=== PATIENT | male | born 1955 | race Caucasian/White ===

== ENCOUNTER 2019-01-13 11:55 | Emergency (ER) | payer OTHER ==
[2019-01-13] MEDS ORDERED: Mag&Al/Simet/Diphen/Lido 237 ML KIT MM STA (13:13)
--- NOTE | 2019-01-13 13:17 | C.PDOC ---
History Of Present Illness 63 y/o M c no PMHx p/w sore throat since this morning. Also reports headache, chills, and cough. Denies dyspnea, vomitng, chest pain, abdominal pain, recent travel. Took no medications at home. Time Seen by Provider: 01/13/19 12:37 Chief Complaint (Nursing): Flu-like Symptoms Past Medical History Vital Signs: Last Vital Signs Temp 100.7 F H 01/13/19 12:23 Pulse 99 H 01/13/19 12:23 Resp 18 01/13/19 12:23 BP 115/78 01/13/19 12:23 Pulse Ox 96 01/13/19 12:23 - Medical History PMH: Kidney Stones Family History: States: No Known Family Hx - Social History Hx Alcohol Use: No Hx Substance Use: No - Immunization History Hx Tetanus Toxoid Vaccination: No Hx Influenza Vaccination: No Hx Pneumococcal Vaccination: No Review Of Systems Except As Marked, All Systems Reviewed And Found Negative. Cardiovascular: Negative for: Chest Pain Respiratory: Negative for: Shortness of Breath Physical Exam - Physical Exam Additional Physical Exam Comments: gen nad head nc/at eyes perrl ent tonsillar erythema and exudates, no drooling, no kissing tonsils, no uvular deviation, no abscess seen. neck no rigidity chest not tender cv reg rate lungs no accessory muscle use abd soft, nt back no cva tenderness skin no rash neuro alert extremites not tender ED Course And Treatment O2 Sat by Pulse Oximetry: 96 Medical Decision Making Medical Decision Making: Physical exam reveals tonsillitis, will treat with antibiotics and supportive care. F/u PMD, return to ED for worsening pain, fever, vomiting, drooling, or any other problem. Disposition - Disposition Referrals: [facility] [Outside] Disposition: HOME/ ROUTINE Disposition Time: 13:22 Condition: FAIR Prescriptions: Acetaminophen [Tylenol 325mg tab] 2 tab PO Q4H #30 tab Amoxicillin 875 mg PO BID #20 tablet Ibuprofen [Motrin] 1 tab PO Q6 #30 tab Instructions: Sore Throat, Adult (DC) Forms: [employer] (Uzbek) - Clinical Impression Clinical Impression: Tonsillitis
[2019-01-13 14:04] VITALS: BP 118/82; PULSE 92; RESP 20; TEMP 99; O2SAT 98
== END 2019-01-13 14:23 | disposition home or self-care (01) ==
LOC: C.ER 11:55
DX: J03.90 Acute tonsillitis, unspecified (principal)
CPT/HCPCS: 96372; 99284; J1885

== ENCOUNTER 2019-01-14 12:16 | Emergency (ER) | payer OTHER ==
[2019-01-14 12:41] VITALS: BMI 26.6
[2019-01-14] MEDS ORDERED: Sodium Chloride 0.9% 1,000 ML IV ONE (14:22)
--- NOTE | 2019-01-14 14:28 | C.PDOC ---
History Of Present Illness Patient is a 63yo [place] M with PMH of kidney stones here today for worsening fatigue and increasing fever. He was discharged from this ED yesterday with a diagnosis of tonsillitis and did not start the prescribed antibiotics yet. He did not take OTC antipyretics because of his vomiting. He states he was unable to keep anything down after PO intake. He feels nauseous upon swallowing and throws up within 30 minutes. He is able to keep liquids down, as he is drinking plenty of water and urinating multiple times a day. Last BM was earlier today. He complains of overall fatigue and dizziness. Denies LOC or fall, however is lightheaded when changing positions. Denies chest pain, shortness of breath, abdominal pain, chills, numbness, tingling. <Katheryn Tsai - Last Filed: 01/14/19 14:24> History Per: Patient Current Symptoms Are (Timing): Worse Location Of Pain: Throat Associated Symptoms: Fever, Sore Throat, Nausea, Vomiting. denies: Chills, Cough, Sputum, Diarrhea <Katheryn Tsai - Last Filed: 01/14/19 14:24> <Moreno Morales DO - Last Filed: 01/15/19 00:14> Chief Complaint (Nursing): GI Problem Past Medical History Reviewed: Historical Data, Nursing Documentation, Vital Signs Vital Signs: Last Vital Signs Temp 102.9 F H 01/14/19 12:40 Pulse 98 H 01/14/19 12:40 Resp 18 01/14/19 12:40 BP 126/80 01/14/19 12:40 Pulse Ox 96 01/14/19 12:40 Primary Care Provider: Clinic,Med Surg - Medical History PMH: Kidney Stones, Chronic Kidney Disease Family History: States: Unknown Family Hx - Social History Hx Tobacco Use: Yes (smoked today) Hx Alcohol Use: No Hx Substance Use: No - Immunization History Hx Tetanus Toxoid Vaccination: No Hx Influenza Vaccination: No Hx Pneumococcal Vaccination: No <Katheryn Tsai - Last Filed: 01/14/19 14:24> Vital Signs: Last Vital Signs Temp 99 F 01/14/19 16:15 Pulse 82 01/14/19 16:15 Resp 18 01/14/19 16:15 BP 121/75 01/14/19 16:15 Pulse Ox 96 01/14/19 16:41 <Andrew Moreno SMITH - Last Filed: 01/15/19 00:14> Review Of Systems Constitutional: Positive for: Fever, Weakness. Negative for: Chills, Sweats ENT: Positive for: Throat Pain, Throat Swelling. Negative for: Nose Congestion Cardiovascular: Positive for: Light Headedness. Negative for: Chest Pain, Palpitations, Edema Respiratory: Negative for: Cough, Shortness of Breath, Sputum Gastrointestinal: Positive for: Nausea, Vomiting. Negative for: Abdominal Pain, Diarrhea, Constipation, Melena, Hematochezia Genitourinary: Negative for: Dysuria, Frequency, Incontinence Neurological: Positive for: Weakness, Headache, Dizziness. Negative for: Change in Speech, Confusion, Altered Mental Status <Katheryn Tsai - Last Filed: 01/14/19 14:24> Physical Exam - Physical Exam Appears: No Acute Distress Skin: No Normal Color (flushed), Warm (feverish), Dry Head: Atraumatic, Normacephalic Eye(s): bilateral: PERRL, EOMI Ear(s): Bilateral: TM Erythema Nose: Normal Oral Mucosa: Dry Tongue: Other (white tongue, halitosis) Throat: Erythema, No Drooling, Other (no abscess, no kissing tonsils, able to swallow without pain or difficulty) Neck: Trachea Midline, Other (cervical lymphadenopathy L>R) Cardiovascular: Rhythm Regular, Edema, No Murmur Respiratory: No Accessory Muscle Use, No Rales, No Rhonchi, Wheezing (diffuse expiratory wheeze) Gastrointestinal/Abdominal: Normal Exam, Bowel Sounds, Soft, No Tenderness, No Distention, No Guarding, No Rebound Back: No CVA Tenderness Extremity: No Tenderness, No Pedal Edema, No Calf Tenderness, Capillary Refill (~3 seconds) Pulses: Left Radial: Normal, Right Radial: Normal, Left Dorsalis Pedis: Decreased, Right Dorsalis Pedis: Decreased DTR: Bicep (R): 2+, Bicep (L): 2+, Knee (R): 2+, Knee (L): 2+ Neurological/Psych: Oriented x3, Normal Speech, Normal Cognition, Normal Cranial Nerves <Katheryn Tsai - Last Filed: 01/14/19 14:24> ED Course And Treatment O2 Sat by Pulse Oximetry: 96 <Katheryn Tsai - Last Filed: 01/14/19 14:24> - Laboratory Results Result Diagrams: 01/14/19 14:38 01/14/19 14:38 Lab Results: Total Bilirubin 0.5 mg/dL (0.2-1.3) 01/14/19 14:38 AST 22 U/L (17-59) 01/14/19 14:38 ALT 10 U/L (21-72) L D 01/14/19 14:38 Alkaline Phosphatase 64 U/L (38-126) 01/14/19 14:38 Total Protein 7.3 g/dL (6.3-8.3) 01/14/19 14:38 Albumin 4.5 g/dL (3.5-5.0) 01/14/19 14:38 Globulin 2.8 gm/dL (2.2-3.9) 01/14/19 14:38 Albumin/Globulin Ratio 1.6 (1.0-2.1) 01/14/19 14:38 <Moreno Morales DO - Last Filed: 01/15/19 00:14> Medical Decision Making Medical Decision Making: - labs - CXR - Tylenol 650mg PO - Zofran 4mg IVP - NS 1L - 1543 re-eval. Patient is feeling a lot better. He was told he is able to take Tylenol for fever if he feels warm. Patient states that he sees Dr. Charles in the clinic. <Katheryn Tsai - Last Filed: 01/14/19 14:24> Disposition - Disposition Disposition Time: 15:46 <Katheryn Tsai - Last Filed: 01/14/19 14:24> <Moreno Morales DO - Last Filed: 01/15/19 00:14> - Disposition Referrals: [facility], [Non-Staff] - Disposition: HOME/ ROUTINE Condition: GOOD Additional Instructions: PRINCE GILLIAM, thank you for letting us take care of you today. The emergency medical care you received today was directed at your acute symptoms. If you were prescribed any medication, please fill it and take as directed. It may take several days for your symptoms to resolve. Return to the Emergency Department if your symptoms worsen, do not improve, or if you have any other problems. Please contact your doctor or call one of the physicians/clinics you have been referred to that are listed on the Patient Visit Information form that is included in your discharge packet. Bring any paperwork you were given at disch arge with you along with any medications you are taking to your follow up visit. Our treatment cannot replace ongoing medical care by a primary care provider outside of the emergency department. Thank you for allowing the [facility] team to be part of your care today. Take the antibiotics that were already prescribed to you. Follow up with your primary care doctor this week for re-evaluation and further management. 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 JOSELUIS has examined the patient and agrees with the treatment plan. <Moreno Morales DO - Last Filed: 01/15/19 00:14>
[2019-01-14 14:43] LABS: BASO # 0.1 K/uL (0.0-0.2); BASO % 0.5 % (0.0-2.0); HEMOGLOBIN 14.8 g/dL (12.0-18.0); LYMPH # 1.1 K/uL (1.0-4.3); LYMPH % 9.6 % (20.0-40.0); MEAN CELL VOLUME 87.9 fL (80.0-94.0); MEAN CORPUSCULAR HEMOGLOBIN 30.3 pg (27.0-31.0); MEAN CORPUSCULAR HGB CONC 34.5 g/dL (33.0-37.0); MEAN PLATELET VOLUME 9.3 fL (7.2-11.7); MONO % 8.7 % (0.0-10.0); NEUT % 81.2 % (50.0-75.0); PLATELET COUNT 206 K/uL (130-400); RBC 4.88 Mil/uL (4.40-5.90); WHITE BLOOD COUNT 11.1 K/uL (4.8-10.8)
[2019-01-14 15:14] LABS: BANDS 2 % (0-2); LYMPHOCYTE 10 % (20-40); MONOCYTE 5 % (0-10); NEUTROPHIL 83 % (50-75); PLATELET ESTIMATE NORMAL (NORMAL); TOTAL CELLS COUNTED 100
[2019-01-14 15:18] VITALS: PULSE 82; RESP 18
[2019-01-14 15:21] LABS: ALB/GLOB RATIO 1.6 (1.0-2.1); ALBUMIN 4.5 g/dL (3.5-5.0); ALT/SGPT 10 U/L (21-72); AST/SGOT 22 U/L (17-59); BLOOD UREA NITROGEN 13 mg/dL (9-20); CALCIUM 9.1 mg/dl (8.6-10.4); GFR NON-AFRICAN AMERICAN > 60
[2019-01-14 15:43] VITALS: O2SAT 96
[2019-01-14 16:56] VITALS: BP 121/75; TEMP 99
--- NOTE | 2019-01-14 17:06 | RAD ---
Date of service: 01/14/2019 HISTORY: diffuse wheeze COMPARISON: 05/01/2011-images are available-no prior reports are now available. TECHNIQUE: 1 view obtained. FINDINGS: LUNGS: No active pulmonary disease. All tiny granuloma left lung base. Similar-appearing other consideration would be left rib bone island PLEURA: No significant pleural effusion identified, no pneumothorax apparent. CARDIOVASCULAR: No aortic atherosclerotic calcification present. Normal cardiac size. No pulmonary vascular congestion. OSSEOUS STRUCTURES: No significant abnormalities. VISUALIZED UPPER ABDOMEN: Normal. OTHER FINDINGS: None. IMPRESSION: No active disease. No interval acute cardiopulmonary pathology noted. Other findings as above.
== END 2019-01-14 16:15 | disposition home or self-care (01) ==
LOC: C.ER 12:16
DX: J03.90 Acute tonsillitis, unspecified (principal); N18.9 Chronic kidney disease, unspecified; Z87.442 Personal history of urinary calculi; F17.200 Nicotine dependence, unspecified, uncomplicated
CPT/HCPCS: 71045; 80053; 85025; 96361; 96374; 99284; J2405; J7030